=== PATIENT | female | born 1980 | race Caucasian/White ===

== ENCOUNTER 2025-11-18 10:31 | Emergency (ER) | payer OTHER ==
[~2025-11-18] VITALS: Ht 160 cm; Wt 56.7 kg
[2025-11-18 10:31] VITALS: BP 97/72; TEMP 98.4; O2SAT 99
[2025-11-18] MEDS ORDERED: METR-147 PO (10:46)
== END 2025-11-18 10:53 | disposition home or self-care (01) ==
LOC: ER 10:51
DX: L25.9 Unspecified contact dermatitis, unspecified cause (principal)